=== PATIENT | female | born 1995 | race African-American/Black ===

== ENCOUNTER 2016-12-17 18:14 | Emergency (ER) | payer MEDICAID ==
[~2016-12-17] VITALS: Ht 157.5 cm; Wt 63.1 kg
[2016-12-17 18:15] VITALS: BP 114/82
== END 2016-12-17 19:00 | disposition home or self-care (01) ==
LOC: ED 18:54
DX: L03.113 Cellulitis of right upper limb (principal)
CPT/HCPCS: 99283

== ENCOUNTER 2017-06-30 14:24 | Emergency (ER) | payer MEDICAID ==
[~2017-06-30] VITALS: Ht 157.5 cm; Wt 63.4 kg
[2017-06-30 14:33] VITALS: BP 116/73
[2017-06-30] MEDS ORDERED: LIDOCAINE 1%, 20ML ONE (15:21)
[2017-06-30] MEDS ORDERED: LIDOCAINE 1%, 20ML SQ ONE (15:30)
== END 2017-06-30 15:52 | disposition home or self-care (01) ==
LOC: ED 15:45
DX: L02.411 Cutaneous abscess of right axilla (principal); F12.10 Cannabis abuse, uncomplicated
CPT/HCPCS: 10060; 99283

== ENCOUNTER 2017-07-02 13:04 | Emergency (ER) | payer MEDICAID ==
[~2017-07-02] VITALS: Ht 157.5 cm; Wt 63.1 kg
[2017-07-02 13:31] VITALS: BP 111/71
== END 2017-07-02 14:00 | disposition home or self-care (01) ==
LOC: ED 13:40
DX: L02.411 Cutaneous abscess of right axilla (principal)
CPT/HCPCS: 99283